=== PATIENT | male | born 1940 | race Two or more races ===

== ENCOUNTER 2020-07-25 23:07 | Inpatient (IN) | payer OTHER ==
[~2020-07-25] VITALS: Ht 167.6 cm; Wt 54.0 kg
[2020-07-25] MEDS ORDERED: CARBIDOPA-LEVO1 EA12 (23:30)
[2020-07-25] MEDS ORDERED: AMANTADINE HCL100 MG (23:30)
[2020-07-25] MEDS ORDERED: CITALOPRAM HBR20 MG (23:30)
[2020-07-25] MEDS ORDERED: MEMANTINE HCL10 MG (23:31)
[2020-07-25] MEDS ORDERED: ECOTRIN81 MG (23:31)
[2020-07-29] MEDS ORDERED: RIVASTIGMINE6 MG (09:21)
[2020-08-15] MEDS ORDERED: NAMENDA10 MG PO (14:28)
[2020-08-15] MEDS ORDERED: CARBIDOPA-LEVO1 EA12 PO (14:28)
== END 2020-08-15 19:39 | disposition home health service (06) | DRG 378 ==
LOC: ER 23:07 → SURH 07-26 12:28 → SEC-K 07-26 12:28 → SURH 07-26 14:10
PROVIDERS: Surgery; ADMIT Internal Medicine; ATTEND Internal Medicine
PROC: BW2110Z Computerized Tomography (CT Scan) of Abdomen and Pelvis using Low Osmolar Contrast, Unenhanced and Enhanced (ICD-10-PCS; 2020-07-26)
PROC: 30233N1 Transfusion of Nonautologous Red Blood Cells into Peripheral Vein, Percutaneous Approach (ICD-10-PCS; 2020-07-27)
PROC: 8E0ZXY6 Isolation (ICD-10-PCS; 2020-07-27)
PROC: 4A12X4Z Monitoring of Cardiac Electrical Activity, External Approach (ICD-10-PCS; 2020-07-28)
PROC: 3E0F7SF Introduction of Other Gas into Respiratory Tract, Via Natural or Artificial Opening (ICD-10-PCS; 2020-07-28)
PROC: 0D7P8ZZ Dilation of Rectum, Via Natural or Artificial Opening Endoscopic (ICD-10-PCS; principal; 2020-07-28 09:00)
PROC: 02HV33Z Insertion of Infusion Device into Superior Vena Cava, Percutaneous Approach (ICD-10-PCS; 2020-08-02)
PROC: 0DH64UZ Insertion of Feeding Device into Stomach, Percutaneous Endoscopic Approach (ICD-10-PCS; 2020-08-05)
DX: K62.5 Hemorrhage of anus and rectum (principal); E87.0 Hyperosmolality and hypernatremia; K56.41 Fecal impaction; R13.19 Other dysphagia; D64.9 Anemia, unspecified; K92.0 Hematemesis; E86.0 Dehydration; G31.83 Neurocognitive disorder with Lewy bodies; F02.80 Dementia in other diseases classified elsewhere, unspecified severity, without behavioral disturbance, psychotic disturbance, mood disturbance, and anxiety; Z20.822 Contact with and (suspected) exposure to COVID-19